=== PATIENT | female | born 1970 | race Asian ===

== ENCOUNTER 2016-06-30 08:01 | Emergency (ER) | payer OTHER ==
[2016-06-30] MEDS ORDERED: NS 1,000 ML IV ONE (08:54)
--- NOTE | 2016-06-30 08:59 | UCPHY ---
H & P Time Seen by Provider: 06/30/16 08:29 Patient Type: New HPI/ROS: HPI Right flank pain, abdominal pain. 46-year-old female by private vehicle. She reports the onset of right sided lower abdominal pain with radiation to the right flank on . She reports that since then it has been intermittent in nature. She reports that on Wednesday she had a more severe episode of this pain which she describes as cramping and sharp in the right flank and right lateral mid abdominal region while driving. She reports being diaphoretic because of the pain. The pain then resolved. She then reports that she woke up again this morning with the pain and that is what prompted her to come to Urgent Care for evaluation. Prior surgical history includes a cholecystectomy. Last bowel movement was this morning. This was normal. No bloody or melenic stool. Last meal was at 7 :00 a.m.. ROS: Constitutional: No fever, no chills. No weakness. Eyes: No discharge. No changes in vision. ENT: No sore throat. No nasal congestion or rhinorrhea. Respiratory: No cough. No shortness of breath. Cardiac: No chest pain, no palpitations. Gastrointestinal: As above, no vomiting, no diarrhea. Genitourinary: No hematuria. No dysuria or increased frequency with urination. Musculoskeletal: As above. No neck pain. No myalgias or arthralgias. Skin: No rashes. Neurological: No headache. No focal weakness or altered sensation. Past medical history: Cholecystectomy, hypothyroid. Social history: Here by herself. No smoking. Physical Exam: General Appearance: Alert, no distress. This patient is responding to questions appropriately and in full sentences. This patient appears well- hydrated and well-nourished. Eyes: Pupils equal and round no pallor or injection. No lid edema, erythema or injection. Respiratory: There are no retractions, lungs are clear to auscultation with good air movement bilaterally. Cardiovascular: Regular rate and rhythm. No murmur. Gastrointestinal: Abdomen is soft with vague and mild mid to right upper quadrant tenderness on palpation, no masses, bowel sounds normal. No focal tenderness at McBurney's point. No Daniels sign. Neurological: Motor sensory function is grossly intact. Cranial nerves are normal. Gait is normal. Skin: Warm and dry, no rashes. Musculoskeletal: Mild right-sided CVA tenderness on palpation. Extremities are symmetrical. All joints range without pain or impingement. Psychiatric: No agitation. No depression. Database: EKG: Imaging: CT scan of abdomen and pelvis without contrast: Constipation. No evidence of ureteral or nephrolithiasis. The appendix is well visualized and is normal. Study otherwise unremarkable. Results were discussed with staff radiologist Dr. Avery Tay. Procedures: Emergency department course: Vital signs have been reviewed and are normal. She is afebrile. An IV was placed. I discussed CT imaging to evaluate for ureterolithiasis verses possible appendicitis. She consented. She is declining pain medication initially. 9:55 a.m., patient re-evaluated. She is resting comfortably at this time. Repeat abdominal exam she is soft, nontender nondistended. Results of CT scan, blood work and urinalysis were discussed with her. I feel she is safe for discharge at this time. I discussed management of constipation. Follow-up and return to emergency department precautions were thoroughly reviewed with her. All of her questions were answered. She was discharged from the emergency department in good condition. Differential Diagnosis: The differential diagnosis on this patient includes but is not limited to ureterolithiasis, appendicitis, colitis, musculoskeletal pain. Cholecystitis, cholangitis, pancreatitis, hepatitis unlikely. This represents a partial list of diagnoses considered. These considerations are based on history, physical exam, past history, reassessment and diagnostic testing. Smoking Status: Never smoked Constitutional: Initial Vital Signs Temperature (C) 36.9 C 06/30/16 08:16 Heart Rate 89 06/30/16 08:16 Respiratory Rate 16 06/30/16 08:16 Blood Pressure 118/80 06/30/16 08:16 O2 Sat (%) 97 06/30/16 08:16 O2 Delivery Mode Room Air Allergies/Adverse Reactions: hydromorphone HCl [From Dilaudid] Allergy (Verified 06/30/16 08:23) Home Medications: Medication Instructions Recorded Levothyroxine 08/09/15 Naturethyroid 08/09/15 Medical Decision Making - Data Points Laboratory Results: Laboratory Results 06/30/16 08:45 06/30/16 08:45 06/30/16 06/30/16 09:00 08:45 WBC 6.65 10^3/uL (3.80-9.50) RBC 5.22 10^6/uL (4.18-5.33) Hgb 10.9 L g/dL (12.6-16.3) Hct 33.6 L % (38.0-47.0) MCV 64.4 L fL (81.5-99.8) MCH 20.9 L pg (27.9-34.1) MCHC 32.4 g/dL (32.4-36.7) RDW 15.0 % (11.5-15.2) Plt Count 273 10^3/uL (150-400) MPV 11.8 H fL (8.7-11.7) Neut % (Auto) 60.6 % (39.3-74.2) Lymph % (Auto) 31.1 % (15.0-45.0) [place] % (Auto) 5.9 % (4.5-13.0) Eos % (Auto) 1.5 % (0.6-7.6) Baso % (Auto) 0.6 % (0.3-1.7) Nucleat RBC Rel Count 0.0 % (0.0-0.2) Absolute Neuts (auto) 4.03 10^3/uL (1.70-6.50) Absolute Lymphs (auto) 2.07 10^3/uL (1.00-3.00) Absolute Monos (auto) 0.39 10^3/uL (0.30-0.80) Absolute Eos (auto) 0.10 10^3/uL (0.03-0.40) Absolute Basos (auto) 0.04 10^3/uL (0.02-0.10) Absolute Nucleated RBC 0.00 10^3/uL (0-0.01) Immature Gran % 0.3 % (0.0-1.1) Immature Gran # 0.02 10^3/uL (0.00-0.10) Platelet Estimate ADEQUATE (ADEQ) Hypochromasia 1+ H Microcytic Cells 1+ H Target Cells 1+ H Stomatocytes 1+ H Elliptocytes 1+ H Schistocytes 1+ H Smear Review By Pending Sodium 142 mEq/L (134-144) Potassium 4.6 mEq/L (3.5-5.2) Chloride 109 mEq/L (97-110) Carbon Dioxide 22 mEq/l (22-31) Anion Gap 11 mEq/L (8-16) BUN 16 mg/dL (7-23) Creatinine 0.8 mg/dL (0.6-1.0) Estimated GFR > 60 Glucose 95 mg/dL (70-100) Calcium 9.6 mg/dL (8.5-10.4) Total Bilirubin 1.1 mg/dL (0.1-1.4) Conjugated Bilirubin 0.3 mg/dL (0.0-0.5) Unconjugated Bilirubin 0.8 mg/dL (0.0-1.1) AST 35 IU/L (14-46) ALT 46 IU/L (9-52) Alkaline Phosphatase 58 IU/L (38-126) Total Protein 7.3 g/dL (6.3-8.2) Albumin 3.9 g/dL (3.5-5.0) Lipase 394.0 H IU/L (23-300) Beta HCG, Qual NEGATIVE Urine Color YELLOW Urine Appearance CLEAR Urine pH 6.0 (5.0-7.5) Ur Specific [place] 1.025 (1.002-1.030) Urine Protein NEGATIVE (NEGATIVE) Urine Ketones NEGATIVE (NEGATIVE) Urine Blood TRACE H (NEGATIVE) Urine Nitrate NEGATIVE (NEGATIVE) Urine Bilirubin NEGATIVE (NEGATIVE) Urine Urobilinogen 0.2 EU (0.2-1.0) Ur Leukocyte Esterase NEGATIVE (NEGATIVE) Urine RBC 3-5 H /hpf (0-3) Urine WBC 0-1 /hpf (0-3) Ur Epithelial Cells 1+ /lpf (NONE-1+) Urine Bacteria TRACE H /hpf (NONE SEEN) Urine Mucus TRACE /lpf (NONE-1+) Ur Culture Indicated? NOT INDICATED (NI) Urine Glucose NEGATIVE (NEGATIVE) Medications Given: Discontinued Medications Sodium Chloride (Ns) 1,000 mls @ 0 mls/hr IV ONCE ONE PRN Reason: Wide Open Stop: 06/30/16 08:55 Last Admin: 06/30/16 09:01 Dose: 1,000 mls Departure - Departure Disposition: Home, Routine, Self-Care Clinical Impression: Right flank pain, Abdominal pain, Constipation Condition: Good Instructions: High Fiber Diet (ED), Constipation (ED), Abdominal Pain (ED) Additional Instructions: Read and follow provided instructions. Follow-up with your primary care physician in 1-2 days for re-evaluation. You should have your liver function tests and lipase repeated in 1 week through your primary care physician. You are also anemic and this appears to be an iron deficiency anemia. You should discuss management of this with your primary care physician. Discuss management of constipation with pharmacist. Consider Metamucil, docusate sodium or MiraLax as initial treatment. Return to the emergency department for worsening abdominal pain, vomiting, fever or other serious concerns. Referrals: Brittny Winchester MD [Primary Care Provider] - As per Instructions - PQRS PQRS Measurement: Not applicable.
[2016-06-30 09:04] LABS: ADD DIFF? NO; ADD MORPH? YES; ADD SCAN? NO; FRAGMENT RBC FLAG 20 (0-99); HEMATOCRIT 33.6 % (38.0-47.0); LEFT SHIFT FLG 0 (0-99); LIPEMIA HEMOLYSIS FLAG 80 (0-99); PLATELET CLUMPS FLAG 10 (0-99)
[2016-06-30 09:09] LABS: COLOR YELLOW; LEUKOCYTE ESTERASE,URINE NEGATIVE (NEGATIVE); NITRITE,URINE NEGATIVE (NEGATIVE)
[2016-06-30 09:09] LABS: % IMMATURE GRANULYOCYTES 0.3 % (0.0-1.1); ABSOLUTE IMMATURE GRANULOCYTES 0.02 10^3/uL (0.00-0.10); ATYPICAL LYMPHOCYTE FLAG 0 (0-99); HEMOGLOBIN 10.9 g/dL (12.6-16.3); MEAN CELL HEMOGLOBIN 20.9 pg (27.9-34.1); MEAN CELL HEMOGLOBIN CONCENTR. 32.4 g/dL (32.4-36.7); MEAN PLATELET VOLUME 11.8 fL (8.7-11.7); PLATELET COUNT 273 10^3/uL (150-400); RED BLOOD CELL COUNT 5.22 10^6/uL (4.18-5.33)
[2016-06-30 09:11] LABS: MEAN CELL VOLUME 64.4 fL (81.5-99.8)
[2016-06-30 09:16] LABS: ALANINE AMINOTRANSFERASE 46 IU/L (9-52); ALBUMIN 3.9 g/dL (3.5-5.0); ALKALINE PHOSPHATASE 58 IU/L (38-126); ANION GAP 11 mEq/L (8-16); ASPARTATE AMINOTRANSFERASE 35 IU/L (14-46); BILIRUBIN,TOTAL 1.1 mg/dL (0.1-1.4); BILIRUBIN-CONJUGATED 0.3 mg/dL (0.0-0.5); BILIRUBIN-UNCONJUGATED 0.8 mg/dL (0.0-1.1); CALCIUM 9.6 mg/dL (8.5-10.4); CARBON DIOXIDE 22 mEq/l (22-31); CHLORIDE 109 mEq/L (97-110); CREATININE 0.8 mg/dL (0.6-1.0); GLOMERULAR FILTRATION RATE > 60; GLUCOSE 95 mg/dL (70-100); POTASSIUM 4.6 mEq/L (3.5-5.2); SODIUM 142 mEq/L (134-144); TOTAL PROTEIN 7.3 g/dL (6.3-8.2)
[2016-06-30 09:42] LABS: BACTERIA TRACE /hpf (NONE SEEN); MUCUS TRACE /lpf (NONE-1+); WBC,URINE 0-1 /hpf (0-3)
--- NOTE | 2016-06-30 09:55 | CT ---
CT Scan of the Urinary Tract (Abdomen and Pelvis Without Contrast) at 0918 hours Clinical Indications: Right-sided flank pain. History of cholecystectomy. Technique: Multidetector helical CT imaging was performed from the kidneys to the urinary bladder wi thout contrast. Dose reduction techniques were utilized. Findings: Abdomen: The lung bases are clear. Liver is normal in attenuation without focal lesion. Patient is st atus post cholecystectomy. Pancreas is normal in size and appearance. Spleen is unremarkable. Both ad renal glands are normal in size and appearance. No evidence for hydronephrosis or nephrolithiasis. No evidence for perinephric stranding around either kidney. Pelvis: Stool is seen throughout the colon. Appendix is normal in size. No evidence for small bowel o bstruction. No significant free fluid in the pelvis. No evidence for bladder calculus. Degenerative c hange is seen in the lumbar spine. Impression: 1. No evidence for nephrolithiasis or hydronephrosis. 2. Constipation. No evidence for diverticulitis. 3. Status post cholecystectomy. Results called to Dr. Guillermo Comer. Attention: This CT examination is specifically designed to evaluate patients who are clinically susp ected of having acute obstructive uropathy. This examination does not use radiographic contrast, and as such, provides only a limited evaluation of the abdomen, pelvis and retroperitoneum. If there i s further clinical suspicion for pathological conditions other than obstructive uropathy, a complete CT evaluation of the abdomen and pelvis utilizing intravenous, oral, and rectal contrast should be co nsidered.
[2016-06-30 09:58] VITALS: BP 122/64; PULSE 75; RESP 18; TEMP 98.6; O2SAT 96
[2016-06-30 10:12] LABS: ELLIPTOCYTES 1+; HYPOCHROMIA 1+; MICROCYTES 1+; PLATELET ESTIMATE ADEQUATE (ADEQ); TARGET CELLS 1+
[2016-06-30 10:13] LABS: SCHISTOCYTES 1+; STOMATOCYTES 1+
== END 2016-06-30 10:03 | disposition home or self-care (01) ==
LOC: CED 08:01
DX: K59.00 Constipation, unspecified (principal)
CPT/HCPCS: 74176-PO; 80048-PO; 80076-PO; 81003-PO; 81015-PO; 83690-PO; 84703-PO; 85025-PO; 96360-PO; 99203-PO; G0463-PO

== ENCOUNTER 2016-09-03 17:26 | Emergency (ER) | payer OTHER ==
[2016-09-03 17:51] VITALS: BP 124/74; PULSE 74; RESP 18; TEMP 98; O2SAT 92
[2016-09-03 18:02] LABS: COLOR YELLOW; LEUKOCYTE ESTERASE,URINE 1+ (NEGATIVE); NITRITE,URINE NEGATIVE (NEGATIVE)
[2016-09-03 18:23] LABS: BACTERIA 3+ /hpf (NONE SEEN); MUCUS 2+ /lpf (NONE-1+); RBC,URINE NONE SEEN /hpf (0-3)
--- NOTE | 2016-09-03 18:53 | UCPHY ---
H & P Time Seen by Provider: 09/03/16 18:22 Patient Type: Established HPI/ROS: This patient complains of dysuria. Her symptoms been present for the last 2 days. She reports partial relief from [id number] azo with no other exacerbating factors. She has noticed some low back pain over the past month intermittently and is not certain if that is musculoskeletal or kidney. Currently no back pain. No other exacerbating factors for urinary symptoms. Symptoms feel similar to previous bladder infection. ROS: No fevers or chills. No other constitutional symptoms. HEENT: No complaints pulmonary: No complaints cardiovascular: No complaints GI: Negative : She has vaginal discharge and irritation in the vulva region. This been present for the past 2-5 days. 7 point ROS is otherwise negative. Past Medical/Surgical History: Hypothyroidism. Otherwise healthy Smoking Status: Never smoked Physical Exam: General Appearance: Alert, no distress. Eyes: Pupils equal and round no pallor or injection. ENT, Mouth: Mucous membranes moist. Respiratory: No respiratory distress Cardiovascular: Brisk capillary refill intact throughout Gastrointestinal: Mild suprapubic tenderness with no guarding or rebound. : No lesions in the vaginal introitus. Speculum exam very tender vaginal mucosa with white vaginal discharge. I am unable to visualize her cervix because of the degree of pain that she has with examination. Vaginal swab for wet mount, Gardnerella a test, chlamydia and GC are all obtained. Neurological: Alert with no focal deficits appreciated Skin: Warm and dry, no rashes. Psychiatric: Patient is oriented X 3, there is no agitation. DIFFERENTIAL DIAGNOSIS: After history and physical exam differential diagnosis was considered for cystitis, pyelonephritis, low vaginal candidiasis, doubt STD Constitutional: Initial Vital Signs Temperature (C) 36.6 C 09/03/16 17:49 Heart Rate 74 09/03/16 17:49 Respiratory Rate 18 09/03/16 17:49 Blood Pressure 124/74 H 09/03/16 17:49 O2 Sat (%) 92 09/03/16 17:49 O2 Delivery Mode Room Air Allergies/Adverse Reactions: hydromorphone HCl [From Dilaudid] Allergy (Verified 06/30/16 08:23) Home Medications: Medication Instructions Recorded Levothyroxine 08/09/15 Naturethyroid 08/09/15 Cephalexin [Keflex (*)] 500 mg PO TID #21 cap 09/03/16 Fluconazole [Diflucan] 200 mg PO ONCE #2 tablet 09/03/16 MDM/Departure - MDM Diagnostics: Wet mount is positive for large amount of yeast. per lab report. No Trichomonas. Urinalysis is consistent with UTI exam is consistent with cystitis. Discussion: Patient with yeast vulvovaginitis and cystitis. I counseled regarding this. Will treat with Keflex and Diflucan. - Depart Disposition: Home, Routine, Self-Care Clinical Impression: Cystitis, Vaginal yeast infection Condition: Good Instructions: Urinary Tract Infection in Women (ED), Vulvovaginal Candidiasis ( ED) Additional Instructions: Diagnosis: Cystitis 2. Vulvovaginal candidiasis Plan: Drink plenty fluids Diflucan into the yeast medication as prescribed Keflex antibiotic Pyridium for discomfort as needed A follow up with OBGYN physician for any ongoing symptoms despite treatment plan Return for any significant worsening despite the treatment plan. Prescriptions: Cephalexin [Keflex (*)] 500 mg PO TID #21 cap Fluconazole [Diflucan] 200 mg PO ONCE #2 tablet Referrals: Brittny Winchester MD [Primary Care Provider] - As per Instructions Josh-Shakira Guzmán MD [Medical Doctor] - As per Instructions - PQRS PQRS Measurement: NA
[2016-09-03 19:37] LABS: WET MOUNT TRICHOMONAS 3+ BACTERIA
[2016-09-07 12:42] LABS: CHLAMYDIA AMPLIFICATION GENPRB NEGATIVE (NEGATIVE)
== END 2016-09-03 20:11 | disposition home or self-care (01) ==
LOC: CED 17:26
DX: N30.00 Acute cystitis without hematuria (principal); B37.3 Candidiasis of vulva and vagina
CPT/HCPCS: 81003-PO; 81015-PO; 87210-PO; 99214-PO; G0463-PO

== ENCOUNTER 2017-01-07 21:19 | Emergency (ER) | payer OTHER ==
[2017-01-07] MEDS ORDERED: ASPIRIN 81 MG CHEWABLE TAB ONE (21:56)
--- NOTE | 2017-01-07 22:01 | CPEKG ---
Heart Rate: 84 RR Interval: 714 P-R Interval: 156 QRSD Interval: 94 QT Interval: 380 QTC Interval: 450 P [place]: 42 QRS [place]: -39 T Wave [place]: 16 EKG Severity - ABNORMAL ECG - EKG Impression: SINUS RHYTHM EKG Impression: LEFT AXIS DEVIATION EKG Impression: PROBABLE LEFT VENTRICULAR HYPERTROPHY Electronically Signed By: Martin Rutledge 07-Jan-2017 23:00:40
[2017-01-07] MEDS ORDERED: ASPIRIN 81 MG CHEWABLE TAB PO ONE (22:03)
[2017-01-07] MEDS ORDERED: KETOROLAC 15 MG/1 ML SDV IVP ONE (22:05)
[2017-01-07 22:09] LABS: % IMMATURE GRANULYOCYTES 0.5 % (0.0-1.1); ABSOLUTE IMMATURE GRANULOCYTES 0.06 10^3/uL (0.00-0.10); ADD DIFF? NO; ADD MORPH? YES; ADD SCAN? NO; ATYPICAL LYMPHOCYTE FLAG 10 (0-99); FRAGMENT RBC FLAG 20 (0-99); HEMOGLOBIN 10.3 g/dL (12.6-16.3); LEFT SHIFT FLG 0 (0-99); LIPEMIA HEMOLYSIS FLAG 80 (0-99); MEAN CELL HEMOGLOBIN 20.5 pg (27.9-34.1); MEAN CELL HEMOGLOBIN CONCENTR. 32.2 g/dL (32.4-36.7); PLATELET CLUMPS FLAG 10 (0-99); PLATELET COUNT 286 10^3/uL (150-400); RED BLOOD CELL COUNT 5.03 10^6/uL (4.18-5.33); RED CELL DISTRIBUTION WIDTH 15.5 % (11.5-15.2)
--- NOTE | 2017-01-07 22:09 | EDPHY ---
H & P Time Seen by Provider: 01/07/17 21:23 HPI/ROS: This patient complains of pleuritic chest pain-right side associated with a dry cough over the past week. The pain worsens with a deep breath and is described as achy in nature but becomes sharp with a deep breath or certain movements. Peak intensity 7/10. She reports that she has had chest wall pain at the site of breast reduction and subsequent abscess drained on 13 of December by her surgeon to the right lateral chest wall but she specifies that this pain feels deeper in her chest and again worsens with deep breaths. She came in today because the pain worsening. She notes no other exacerbating factors and has not taken any medications for her pain. She is accompanied by her who brought her in by private vehicle ROS: Constitutional: Low-grade fever to 99.8 at home. No chills. No significant fatigue. HEENT: No URI symptoms or other complaints Pulmonary: No hemoptysis. She does report mild dyspnea over the past few days. Cardiovascular: No heart palpitations. No lightheadedness. No leg swelling or calf pain. GI: No abdominal pain. : No complaints Integumentary: She reports no recent skin complaints at this site for breast reduction and abscess. No other integumentary complaints. Endocrine: No complaints Neuro: No complaints Complete review of symptoms otherwise negative. Source: Patient Exam Limitations: No limitations - Medical/Surgical History PMH: Hypothyroidism Past surgical history breast reduction in August with complication of breast abscess in November drained by her surgeon on 12/13. She has reported some chest wall pain at the site since the abscess that persists Other PMH: PCP Eleonora Winchester. GB /Hypothyroid. Flu Vacc NONE. Tet Immun - Family History Significant Family History: Heart disease (Her father had an [place] at age 49) - Social History Smoking Status: Never smoked Alcohol Use: Occasionally Drug Use: None - Physical Exam Exam: General Appearance: Pleasant [place] female Alert, no distress. Eyes: Pupils equal and round no pallor or injection. ENT, Mouth: Mucous membranes moist. Respiratory: There are no retractions, lungs are clear to auscultation. She does have a dry intermittent cough. Appreciate no rales or rhonchi. Cardiovascular: Regular rate and rhythm. No murmur gallop rub. No calf swelling or tenderness Breast exam: Right breast with clean dry intact surgical scars with no erythema , warmth to touch or significant tenderness at scar sites. Similarly, the site of the previous abscesses clean dry intact palpation here does cause mild local tenderness but she specifies that the pain she feels is deeper in her chest and worsens when she takes a deep breath. Back: Atraumatic normal Gastrointestinal: Abdomen is soft and nontender, no masses, bowel sounds normal. Neurological: GCS 15 no focal deficits. Skin: Warm and dry, no rashes. Musculoskeletal: Neck is supple nontender. Extremities are symmetrical, full range of motion. Psychiatric: Mood and affect normal. DIFFERENTIAL DIAGNOSIS: After history and physical exam differential diagnosis was considered for pneumonia, bronchitis, pleurisy, pulmonary embolism, coronary syndrome, pneumothorax, chest wall pain Constitutional: Initial Vital Signs Temperature (C) 36.8 C 01/07/17 21:38 Heart Rate 99 01/07/17 21:38 Respiratory Rate 14 01/07/17 21:38 Blood Pressure 128/87 H 01/07/17 21:38 O2 Sat (%) 96 01/07/17 21:38 O2 Delivery Mode Room Air Allergies/Adverse Reactions: hydromorphone HCl [From Dilaudid] Allergy (Verified 01/07/17 21:36) Home Medications: Medication Instructions Recorded Levothyroxine 08/09/15 Naturethyroid 08/09/15 Medical Decision Making - Diagnostics EKG Interpretation: 12 lead EKG performed at 9:50 p.m. reveals sinus rhythm at 84 Intervals: Normal throughout [place]: P of 42, QRS of-39, T of 16 ST segments: Normal throughout by my interpretation Overall assessment sinus rhythm with left axis deviation Imaging: Discussed imaging studies w/ call center associate Radiologist, I viewed and interpreted images myself ED Course/Re-evaluation: IV, monitor Aspirin 324 p. o. IV Toradol 15 mg - with significant relief of her pleuritic discomfort I did discuss the chest radiograph with our on-call for radiologist-Dr. Madera-my initial impression is negative. However on the lateral view between spine heart consider possible air bronchogram. Dr. mayorga self feels this chest x -ray is negative for infiltrate. Review of labs reveals mild leukocytosis on CBC, normal troponin, negative D- dimer, normal electrolytes. Patient's presentation is most consistent with acute bronchitis with pleurisy. I counseled the patient regarding this. With no risk factors and negative D-dimer do not think this patient has a pulmonary embolism. Her pain does not seem consistent with angina, her EKG appears benign and she has normal troponin. I do not think she is having coronary syndrome. Rule out pneumothorax with radiograph. No other concerning findings. Patient is treated with Zithromax 500 mg p.o. and an albuterol inhaler with spacer as a take home. Our nurse instructed her in its use. She will take ibuprofen for her pleurisy and follow up with primary care physician for any ongoing symptoms. She understands need to return to the emergency department should she develop any significant worsening of her symptoms despite the treatment plan. - Data Points Laboratory Results: Laboratory Results 01/07/17 21:50 01/07/17 21:50 01/07/17 01/07/17 01/07/17 21:50 21:50 21:50 WBC 11.00 10^3/uL H 10^3/uL (3.80-9.50) RBC 5.03 10^6/uL 10^6/uL (4.18-5.33) Hgb 10.3 g/dL L g/dL (12.6-16.3) Hct 32.0 % L % (38.0-47.0) MCV 63.6 fL L fL (81.5-99.8) MCH 20.5 pg L pg (27.9-34.1) MCHC 32.2 g/dL L g/dL (32.4-36.7) RDW 15.5 % H % (11.5-15.2) Plt Count 286 10^3/uL 10^3/uL (150-400) MPV TNP Neut % (Auto) 64.6 % % (39.3-74.2) Lymph % (Auto) 25.6 % % (15.0-45.0) [place] % (Auto) 6.7 % % (4.5-13.0) Eos % (Auto) 2.2 % % (0.6-7.6) Baso % (Auto) 0.4 % % (0.3-1.7) Nucleat RBC Rel Count 0.0 % % (0.0-0.2) Absolute Neuts (auto) 7.10 10^3/uL H 10^3/uL (1.70-6.50) Absolute Lymphs (auto) 2.82 10^3/uL 10^3/uL (1.00-3.00) Absolute Monos (auto) 0.74 10^3/uL 10^3/uL (0.30-0.80) Absolute Eos (auto) 0.24 10^3/uL 10^3/uL (0.03-0.40) Absolute Basos (auto) 0.04 10^3/uL 10^3/uL (0.02-0.10) Absolute Nucleated RBC 0.00 10^3/uL 10^3/uL (0-0.01) Immature Gran % 0.5 % % (0.0-1.1) Immature Gran # 0.06 10^3/uL 10^3/uL (0.00-0.10) Platelet Estimate ADEQUATE (ADEQ) Hypochromasia 2+ H Microcytic Cells 3+ H Tear Drop Cells 1+ H Schistocytes 1+ H Smear Review By Pending D-Dimer 0.28 ug/mLFEU ug/mLFEU (0.00-0.50) Sodium 138 mEq/L mEq/L (134-144) Potassium 4.6 mEq/L mEq/L (3.5-5.2) Chloride 105 mEq/L mEq/L (97-110) Carbon Dioxide 22 mEq/l mEq/l (22-31) Anion Gap 11 mEq/L mEq/L (8-16) BUN 13 mg/dL mg/dL (7-23) Creatinine 0.7 mg/dL mg/dL (0.6-1.0) Estimated GFR > 60 Glucose 91 mg/dL mg/dL (70-100) Calcium 9.4 mg/dL mg/dL (8.5-10.4) Troponin I < 0.012 ng/mL ng/mL (0-0.034) Medications Given: Discontinued Medications Aspirin (Aspirin) 324 mg PO EDNOW ONE Stop: 01/07/17 22:04 Last Admin: 01/07/17 22:12 Dose: 324 mg Ketorolac Tromethamine (Toradol) 15 mg IVP EDNOW ONE Stop: 01/07/17 22:06 Last Admin: 01/07/17 22:12 Dose: 15 mg Departure - Departure Referrals: Brittny Winchester MD [Primary Care Provider] - As per Instructions
[2017-01-07 22:15] LABS: ANION GAP 11 mEq/L (8-16); CALCIUM 9.4 mg/dL (8.5-10.4); CARBON DIOXIDE 22 mEq/l (22-31); CHLORIDE 105 mEq/L (97-110); CREATININE 0.7 mg/dL (0.6-1.0); GLOMERULAR FILTRATION RATE > 60; GLUCOSE 91 mg/dL (70-100); MEAN CELL VOLUME 63.6 fL (81.5-99.8); POTASSIUM 4.6 mEq/L (3.5-5.2); SODIUM 138 mEq/L (134-144)
[2017-01-07 22:22] VITALS: BP 111/80
[2017-01-07 22:28] LABS: TROPONIN I < 0.012 ng/mL (0-0.034)
[2017-01-07 22:31] VITALS: TEMP 98.2
[2017-01-07 22:37] LABS: HYPOCHROMIA 2+; MICROCYTES 3+; PLATELET ESTIMATE ADEQUATE (ADEQ); SCHISTOCYTES 1+
[2017-01-07] MEDS ORDERED: AZITHROMYCIN 250 MG TAB PO ONE (22:37)
[2017-01-07] MEDS ORDERED: ALBUTEROL INH PREPACK MDI TAKEHOME ONE (22:46)
[2017-01-07 23:32] VITALS: PULSE 80; RESP 18; O2SAT 97
== END 2017-01-07 23:24 | disposition home or self-care (01) ==
LOC: CED 21:19
DX: J20.9 Acute bronchitis, unspecified (principal); R09.1 Pleurisy
CPT/HCPCS: 71020-PO; 80048-PO; 84484-PO; 85025-PO; 85378-PO; 96374; J1885

== ENCOUNTER 2018-10-30 18:39 | Emergency (ER) | payer OTHER | END 2018-10-30 19:57 | disposition home or self-care (01) | LOC: CED 18:39 ==